=== PATIENT | female | born 1995 | race African-American/Black ===

== ENCOUNTER 2023-10-19 09:44 | Emergency (ER) | payer MEDICAID ==
[~2023-10-19] VITALS: Ht 157.5 cm; Wt 90.7 kg
[2023-10-19 09:46] VITALS: TEMP 98.2; O2SAT 100
[2023-10-19 10:30] VITALS: PULSE 76
[2023-10-19] MEDS ORDERED: LIDOCAINE 5% PATCH TOP SCH (10:30)
[2023-10-19] MEDS ORDERED: CYCLOBENZAPRINE 10MG TABLET PO ONE (10:30)
[2023-10-19] MEDS ORDERED: KETOROLAC 30MG/ML VIAL IM ONE (10:30)
[2023-10-19] MEDS ORDERED: IBUP-2028 MT (11:17)
[2023-10-19] MEDS ORDERED: LIDO700A15 TP (11:17)
[2023-10-19] MEDS ORDERED: CYCL5TAB MT (11:17)
[2023-10-19 11:49] VITALS: BP 116/67; RESP 16
== END 2023-10-19 12:58 | disposition home or self-care (01) ==
LOC: ER 09:44
DX: S16.1XXA Strain of muscle, fascia and tendon at neck level, initial encounter (principal); S39.012A Strain of muscle, fascia and tendon of lower back, initial encounter; M25.511 Pain in right shoulder; E11.9 Type 2 diabetes mellitus without complications; V49.40XA Driver injured in collision with unspecified motor vehicles in traffic accident, initial encounter; Y93.89 Activity, other specified; Y92.89 Other specified places as the place of occurrence of the external cause; Y99.8 Other external cause status; Z98.890 Other specified postprocedural states
CPT/HCPCS: 73030; 96372; 99283; J1885; Z7610

== ENCOUNTER 2023-10-28 09:03 | Emergency (ER) | payer MEDICAID ==
[~2023-10-28] VITALS: Ht 165.1 cm; Wt 91.0 kg
[~2023-10-28 09:03] MED LIST: CYCL5TAB MT; IBUP-2028 MT; LIDO700A15 TP
[2023-10-28 09:16] VITALS: TEMP 98.2; O2SAT 100
[2023-10-28] MEDS ORDERED: CYCL10TA21 MT (09:52)
[2023-10-28] MEDS ORDERED: TOPUD MT (09:52)
[2023-10-28] MEDS ORDERED: KETOROLAC 60MG/2ML VIAL IM ONE (10:00)
[2023-10-28 10:40] VITALS: BP 110/60; PULSE 98; RESP 16
== END 2023-10-28 10:41 | disposition home or self-care (01) ==
LOC: ER 09:23
DX: M54.50 Low back pain, unspecified (principal); M54.2 Cervicalgia; E11.9 Type 2 diabetes mellitus without complications; Z98.890 Other specified postprocedural states
CPT/HCPCS: 96372; 99283; J1885; Z7610

== ENCOUNTER 2024-01-09 07:16 | Emergency (ER) | payer SELFPAY ==
[~2024-01-09] VITALS: Ht 157.5 cm; Wt 102.0 kg
[~2024-01-09 07:16] MED LIST changes: +CYCL10TA21 MT; +TOPUD MT
[2024-01-09 07:24] VITALS: O2SAT 100
[2024-01-09] MEDS: ACETAMINOPHEN 325MG TABLET PO ONE (09:57)
[2024-01-09] MEDS: LIDOCAINE 5% PATCH TOP SCH (09:57)
[2024-01-09] MEDS: IBUPROFEN 400MG TABLET PO ONE (09:57)
[2024-01-09 10:18] VITALS: BP 123/75; PULSE 62; RESP 16; TEMP 98.8
== END 2024-01-09 10:26 | disposition home or self-care (01) ==
LOC: ER 07:16
DX: M54.9 Dorsalgia, unspecified (principal); E11.9 Type 2 diabetes mellitus without complications; Z98.890 Other specified postprocedural states
CPT/HCPCS: 81025; 99283